=== PATIENT | female | born 1980 | race Caucasian/White ===

== ENCOUNTER 2021-06-08 21:56 | Emergency (ER) | payer OTHER ==
[~2021-06-08 21:56] MED LIST: JARDIANCE10 MG PO; LORTAB 7.5-3251 EACH PO; METFORMIN HCL850 MG PO; MULTIVITAMINS1 EAC1 PO; ZYVOX PO
[2021-06-09] MEDS ORDERED: CORTISPORIN OTI10 M1 EARRT (01:10)
[2021-06-09] MEDS ORDERED: BACTRIM 400-801 EACH PO (01:10)
== END 2021-06-09 00:21 | disposition home or self-care (01) ==
LOC: ER1 21:56
DX: L02.214 Cutaneous abscess of groin (principal)
CPT/HCPCS: 99283

== ENCOUNTER 2021-06-13 07:34 | Day surgery (SDC) | payer OTHER ==
[~2021-06-13] VITALS: Ht 165.1 cm; Wt 109.3 kg
[~2021-06-13 07:34] MED LIST changes: +BACTRIM 400-801 EACH PO; +CORTISPORIN OTI10 M1 EARRT
[2021-06-14 05:07] LABS: BUN/CREATININE RATIO 21 (0-10)
== END 2021-06-14 15:23 | disposition home or self-care (01) ==
LOC: OR 07:34 → MED SURG 4 15:55 → OR 06-14 15:23
PROVIDERS: Surgery
DX: L02.214 Cutaneous abscess of groin (principal); E11.9 Type 2 diabetes mellitus without complications; A64 Unspecified sexually transmitted disease; B37.2 Candidiasis of skin and nail; Z79.84 Long term (current) use of oral hypoglycemic drugs; Z20.822 Contact with and (suspected) exposure to COVID-19
CPT/HCPCS: 36415; 80048; 87070; 87077; 87186; 87205; J0690; J1100; J2001; J2250; J2270; J2405; J2704; J3010; J7030; J7120; U0002